=== PATIENT | female | born 1930 | race Caucasian/White ===

== ENCOUNTER 2018-08-29 17:19 | Inpatient (IN) ==
--- NOTE | 2018-08-29 17:51 | Emergency Department Note ---
ED Disposition Clinical Impression: Acute cystitis without hematuria, Acute and chronic cholecystitis Altered mental status Qualifiers: Altered mental status type: stupor Qualified Code(s): R40.1 - Stupor Disposition: Admitted As Inpatient Condition on Discharge: Critical Additional Instructions: Pt being admitted for IVF's, IV antibiotics and supportive care as she is a DNR and she currently has a UTI and Hypotension. She also has a biliary drain in place and it seems to be functioning normally Referrals: Emigdio Olivia MD [Primary Care Provider] - Rafael Ibarra MD [Staff Physician] - Time of Disposition: 20:12 - Critical Care Critical Care Time: Yes Attestation: On , the high probability of a clinically significant, sudden or life threatening deterioration of the following system(s) required my full and direct attention, intervention and personal management. The time I documented below is in addition to time spent performing reported procedures but includes the following listed in this critical care notation. Total Critical Care Time: 45 Vital system(s) involved:: Circulatory Failure, Central Nervous System, Metabolic Failure, Renal Failure My critical care processes included: Assessment & monitoring of V/S, Initial and Re-exams, Data Review/Interpretation, Coordinating Care, Medication Orders and management, Documentation Medical Decision Making - Medical Records Medical records reviewed: Yes: I reviewed the patient's medical records. - Denzel Inquiry Pt receiving controlled substance: No Denzel was queried for this patient: No Vital Signs: 08/29/18 17:20 08/29/18 17:29 08/29/18 17:41 Temperature 98.5 F Temperature Source Axillary Pulse Rate [Right Brachial] 70 50 L 45 L Respiratory Rate 14 Blood Pressure [Right Arm] 85/47 L 92/40 L 90/56 L Blood Pressure Mean [Right Arm] 59 57 67 Blood Pressure Source [Right Arm] Automatic Cuff Automatic Cuff Blood Pressure Position [Right Arm] Supine Supine 02 Sat by Pulse Oximetry 95 Oxygen Delivery Method Nasal Cannula Oxygen Flow Rate (LPM) 4 08/29/18 17:55 08/29/18 18:03 08/29/18 18:20 Temperature Temperature Source Pulse Rate [Right Brachial] 54 L 55 L 86 Respiratory Rate Blood Pressure [Right Arm] 76/33 L 77/34 L 76/33 L Blood Pressure Mean [Right Arm] 47 48 47 Blood Pressure Source [Right Arm] Manual Cuff/ Palpation Automatic Cuff Automatic Cuff Blood Pressure Position [Right Arm] Sitting Supine 02 Sat by Pulse Oximetry Oxygen Delivery Method Oxygen Flow Rate (LPM) 08/29/18 18:56 08/29/18 19:12 08/29/18 19:29 Temperature Temperature Source Pulse Rate [Right Brachial] 60 54 L 58 L Respiratory Rate Blood Pressure [Right Arm] 79/41 L 68/35 L 102/35 L Blood Pressure Mean [Right Arm] 53 46 57 Blood Pressure Source [Right Arm] Automatic Cuff Automatic Cuff Automatic Cuff Blood Pressure Position [Right Arm] Sitting Sitting Sitting 02 Sat by Pulse Oximetry Oxygen Delivery Method Oxygen Flow Rate (LPM) 08/29/18 19:53 08/29/18 20:01 Temperature Temperature Source Pulse Rate [Right Brachial] 76 63 Respiratory Rate Blood Pressure [Right Arm] 91/44 L 83/57 L Blood Pressure Mean [Right Arm] 59 65 Blood Pressure Source [Right Arm] Automatic Cuff Automatic Cuff Blood Pressure Position [Right Arm] Sitting Sitting 02 Sat by Pulse Oximetry 99 Oxygen Delivery Method Nasal Cannula Oxygen Flow Rate (LPM) 4 - Lab Data Lab results reviewed: Yes: I reviewed the patient's lab results. Lab Results 08/29/18 17:30: PT 15.4 H, INR 1.51 H 08/29/18 17:50: WBC 14.0 H, RBC 3.14 L, Hgb 8.8 L, Hct 28.0 L, MCV 89.1, MCH 28 .1, MCHC 31.5 L, RDW 16.2, Plt Count 356, MPV 7.7, Neut % (Auto) 78.0, Lymph % (Auto) 15.7, [place] % (Auto) 6.1, Eos % (Auto) 0.0 L, Baso % (Auto) 0.1, Neut # (Auto) 10.9 H, Lymph # (Auto) 2.2, [place] # (Auto) 0.9, Eos # (Auto) 0.0, Baso # (Auto) 0.0 08/29/18 17:50: Urine Color Yellow, Urine Appearance Sl cloudy, Urine pH 6.5, Ur Specific [place] 1.020, Urine Protein Trace, Urine Glucose (UA) 1+, Urine Ketones Trace, Urine Blood Negative, Urine Nitrate Negative, Urine Bilirubin Negative, Urine Urobilinogen 0.2, Ur Leukocyte Esterase 1+ A, Urine RBC None, Urine WBC 20-50 A, Ur Squamous Epith Cells Occasional, Urine Bacteria 1+, Urine Yeast 2+ 08/29/18 17:50: Sodium 152 H*, Potassium 3.0 L, Chloride 110 H, Carbon Dioxide 27, Anion Gap 18.0 H, BUN 35 H, Creatinine 2.44 H, Estimated Creat Clear 12, Estimated GFR 19 L*, Est GFR ( Amer) 23 L, Glucose 118 H, Calcium 9.3, Total Bilirubin 0.3, AST 54 H, ALT 31, Alkaline Phosphatase 119 H, Total Protein 6.5, Albumin 2.6 L, Globulin 3.9 H, Albumin/Globulin Ratio 0.7 L 08/29/18 17:50: Lactate 5.9 H 08/29/18 17:55: Stl Aeromonas (PCR) Not detected, Stl C. cayetanensis PCR Not detected, Stool Rotavirus (PCR) Not detected, Stl Adenov F 40/41 PCR Not detected, Stool Astrovirus (PCR) Not detected, Stool Campylobacter PCR Not detected, Stl C.difficile Tox PCR Detected A, Stool Cryptosporidium PCR Not detected, Stl E.coli Shiga Tox PCR Not detected, Stool E coli O157 PCR Not detected, Stl Enterotoxigenic E PCR Not detected, Stool EPEC (PCR) Not detected, Stool EAEC (PCR) Not detected, Stl E. histolytica PCR Not detected, Stool Giardia Lamblia PCR Not detected, Stool Salmonella PCR Not detected, Stool Sapovirus (PCR) Not detected, Stl P. shigelloides PCR Not detected, Stl Shigella/EIEC PCR Not detected, St Y.enterocolitica PCR Not detected, Stool Vibrio (PCR) Not detected, Stl Vibrio cholerae PCR Not detected, Stl Norovirus GI/GII PCR Not detected 08/29/18 18:21: ABG pH 7.39, ABG pCO2 42.8, ABG pO2 87.4, ABG HCO3 25.4, ABG Total CO2 26.7, ABG O2 Saturation 95, ABG Base Excess 0.4 Result diagrams: 08/29/18 17:50 08/29/18 17:50 Orders (Tests/Meds): ED MEDICATIONS Generic Name Dose Route Start Last Admin Trade Name Freq PRN Reason Stop Dose Admin Norepinephrine Bitartrate 8 mg 258 mls @ 15.48 mls/hr 08/29/18 19:45 08/29/18 19:33 / Dextrose IV 09/28/18 19:44 8 mcg/min .[id number] ABBIE 15.48 mls/hr Administration Protocol 8 MCG/MIN Vancomycin HCl 1,000 mg/ 250 mls @ 125 mls/hr 08/29/18 20:01 Sodium Chloride IV 08/29/18 22:00 ONCE ONE Discontinued Medications Generic Name Dose Route Start Last Admin Trade Name [place]aria PRN Reason Stop Dose Admin Sodium Chloride 1,000 mls @ 999 mls/hr 08/29/18 18:00 08/29/18 18:00 Sod Chlor 0.9% 1000ml Bag IV 08/29/18 19:00 999 mls/hr .Q1H1M ABBIE Administration Sodium Chloride 1,000 mls @ 999 mls/hr 08/29/18 18:00 08/29/18 18:59 Sod Chlor 0.9% 1000ml Bag IV 08/29/18 19:00 999 mls/hr .Q1H1M ABBIE Administration Piperacillin Sod/Tazobactam 100 mls @ 200 mls/hr 08/29/18 20:01 Sod 3.375 gm/ Sodium Chloride IV 08/29/18 20:02 ONCE ONE Protocol ORDERS Category Date Time Status Blood Culture Stat Micro 08/29/18 17:50 Received Urine Culture(cathed specimen) Stat Micro 08/29/18 17:50 Received ABG [Arterial Blood Gas] Stat RT 08/29/18 17:54 Ordered EKG Request [ECG Request by Dr/Nse] Stat Y 08/29/18 17:56 Ordered - CT Data CT Scan: Head Time Received: 20:[address] Reviewed: Yes: I have reviewed the patient's CT results, I discussed the CT results w/the radiologist, I have viewed the radiologist's interpretation Preliminary Findings: Normal/NAD - Tissue Perfus/Sepsis Re-Eval Reperfusion Exam Performed: Yes Date Performed: 08/29/18 Time Performed: 19:00 Sepsis Follow-Up: Yes: Respiratory exam, Cardiovascular exam, Capillary refill, Skin exam, Vital Signs General Adult HPI - General Stated complaint: mental status change Time Seen by Provider: 08/29/18 17:40 Mode of Arrival: EMS Source of Information: EMS, Medical Record Limitations: Altered Mental Status - History of Present Illness HPI narrative: Pt transfered to [facility] from on Thursday and arrive with a Biliary drainge tube and history of Acute on Chronic cholecystitis. This morning pt much less responsive and hypotensive and brought to the ED this afternoon in an obtunded state and not able to give any history of anyking. Her BP is 84 systolic and she is not verbally responsive and appears to be critically ill...she can not give any history of anykind and very little was sent with her from the [place] Onset (ago): hour(s) Severity: severe Consistency: constant - Related Data Home Medications Medication Instructions Recorded Confirmed Acetaminophen [Acetaminophen Extra 500 mg PO Q6HP PRN 08/29/18 08/29/18 Strength] Apixaban [Eliquis] 2.5 mg PO BID 08/29/18 08/29/18 Ascorbate Calcium [Vitamin C] 500 mg PO BID 08/29/18 08/29/18 Aspirin [Aspirin 81mg EC Tab] 81 mg PO DAILY 08/29/18 08/29/18 Atorvastatin Calcium [Atorvastatin 20 mg PO HS 08/29/18 08/29/18 20mg Tab] Furosemide [Lasix 20mg tab] 20 mg PO DAILY 08/29/18 08/29/18 Insulin Lispro [Humalog] 6 unit SQ ACHS 08/29/18 08/29/18 Insulin Lispro [Humalog] 10 unit SQ ONCE 08/29/18 08/29/18 Ipratropium/Albuterol Sulfate 3 ml IH ONCE 08/29/18 08/29/18 [Duoneb 3mL neb] Lisinopril [Lisinopril 5mg Tablet] 5 mg PO DAILY 08/29/18 08/29/18 Melatonin/Pyridoxine HCl (B6) 3 each PO HS 08/29/18 08/29/18 [Melatonin 3 mg Tablet] Metformin HCl 500 mg PO BID 08/29/18 08/29/18 Metoprolol Succinate [Metoprolol 200 mg PO DAILY 08/29/18 08/29/18 Succinate 200mg Tablet] Quetiapine Fumarate 25 mg PO Q8HP PRN 08/29/18 08/29/18 Quetiapine Fumarate [Seroquel 25mg 75 mg PO HS 08/29/18 08/29/18 tablet] Sertraline HCl [Zoloft 50mg tablet] 50 mg PO DAILY 08/29/18 08/29/18 Tamsulosin HCl [Flomax 0.4mg 0.4 mg PO HS 08/29/18 08/29/18 capsule] Thiamine HCl 100 mg PO DAILY 08/29/18 08/29/18 Zinc Gluconate-Zinc Picolinate 30 mg PO HS 08/29/18 08/29/18 [Zinc] dilTIAZem HCl [Diltiazem 240mg 240 mg PO DAILY 08/29/18 08/29/18 24Hr ER Cap] levoFLOXacin [Levaquin 500mg 500 mg PO DAILY 08/29/18 08/29/18 tab] Allergies Allergy/AdvReac Type Severity Reaction Status Date / Time codeine Allergy Verified 08/29/18 17:41 oxycodone Allergy Verified 08/29/18 17:41 [facility] History I have reviewed the patient's past medical history: Yes ROS Obtained: Yes All systems reviewed & no additional complaints - Constitutional Constitutional: Reports system reviewed and no additional complaints, except as docu, Reports as per HPI - Cardiovascular Cardiovascular: Reports system reviewed and no additional complaints, except as docu, Reports as per HPI - Respiratory Respiratory: Yes system reviewed and no additional complaints, except as docu, Yes as per HPI - Gastrointestinal Gastrointestingal: Reports: system reviewed and no additional complaints, except as docu, as per HPI (has a drainage tube in her biliary tree) - Neurologic Neurologic: Reports system reviewed and no additional complaints, except as docu, Reports as per HPI (pt is obtunded at this time) Physical Exam - General General appearance: obtunded - Head Head exam: atraumatic - Eye Eye exam: Present: normal appearance - ENT ENT exam: Present: mucous membranes dry - Neck Neck exam: Present: normal inspection - Chest Chest inspection: Present: normal inspection - Respiratory Respiratory exam: Present: normal lung sounds bilaterally - Cardiovascular Cardiovascular exam: Present: regular rate (has a drainage tube in RUQ draining bile) - Abdominal Exam Abdominal exam: Present: soft (has aq biliary drain in) - Neurological Exam Neurological exam: Present: other (pt is obtunded and not able to answer any questions at all)
[2018-08-29 18:06] LABS: Basophils % 0.1 % (0.1-2.0); Hemoglobin 8.8 g/dL (12.2-16.2); Lymphocytes # 2.2 K/mm3 (0.7-4.5); Lymphocytes % 15.7 K/mm3 (10-50); Mean Corpuscular HGB Conc 31.5 g/dL (31.8-35.4); Mean Corpuscular Hemoglobin 28.1 pg (27.0-31.2); Mean Corpuscular Volume 89.1 fl (81-99); Mean Platelet Volume 7.7 fl (7.4-10.4); Monocytes # 0.9 K/mm3 (0.1-1.0); Monocytes % 6.1 % (1.7-9.3); Neutrophils # 10.9 K/mm3 (1.8-7.8); Platelet Count 356 K/mm3 (142-424); Red Blood Count 3.14 M/mm3 (4.20-5.40); Red Cell Distribution Width 16.2 % (11.5-17.5)
[2018-08-29 18:20] LABS: Albumin Level 2.6 gm/dL (3.4-5.0); Albumin/Globulin Ratio 0.7 (1.1-1.8); Bilirubin,Total 0.3 mg/dL (0.2-1.0); Calcium 9.3 mg/dL (8.5-10.1); Globulin 3.9 gm/dl (1.3-3.2); Total Protein,Serum 6.5 gm/dL (6.4-8.2)
[2018-08-29 18:23] LABS: ABG Base Excess 0.4 mmol/L (-2.4-2.3); ABG HCO3 25.4 mmhg (22.0-26.0); ABG Oxygen Saturation 95 % (90-100); ABG PCO2 42.8 mmhg (35.0-45.0); ABG PH 7.39 mmol/L (7.35-7.45); ABG PO2 87.4 mmhg (80-100); ABG TCO2 26.7 mmhg (23-27)
[2018-08-29 18:45] LABS: INR 1.51 (0.9-1.1); Prothrombin Time 15.4 seconds (9.4-11.8)
[2018-08-29 20:55] LABS: Amphetamine/Metha Screen,Urine Negative ng/mL (<1000); Barbiturates Screen,Urine Negative ng/mL (<200); Benzodiazepines Screen,Urine Negative ng/mL (<200); Cannabinoid Screen,Urine Negative ng/mL (<50); Cocaine Screen,Urine Negative ng/mL (<300); Methadone Screen,Urine Negative ng/mL (<300); Opiate Screen,Urine Positive ng/mL (<300); Phencyclidine Screen,Urine Negative ng/mL (<25)
--- NOTE | 2018-08-30 07:30 | Death Note ---
Pronouncement Note - Date and Time of Date of : 08/30/18 Time of : 06:12 - PCOD Preliminary cause of : Urinary tract infection - Additional Data Confirmation of : no pulse, no respirations, no heart sounds, pupils fixed and dilated, other (no response to pain) Family: not available Attending/PCP notified?: Yes Attending physician: Rafael Ibarra MD Was code activated?: No Autopsy requested?: No certified driver examiner notified?: No Organ bank notified?: No
--- NOTE | 2018-08-30 08:44 | H&P/Discharge Summary ---
General - General Admission date:: 08/29/18 Discharge date: 08/30/18 *Admission Date: 08/29/18 *Chief complaint: Hypoxia/fever/hyperglycemia *History of present illness: 88-year-old white female, patient of Dr. Olivia at a local [facility], who was admitted from [facility] after having a significant problem with cholecystitis and cholelithiasis with some type of surgical procedure that required indwelling agonal drain. She was transferred to [facility] for rehabilitation and ongoing care. She initially did well, but the morning of admission to [facility] became obtunded, hyperglycemic and hypotensive. She also had problems with respiratory distress. Measures at the [facility] including nebulizer treatments and insulin therapy did not improve her situation and she was transferred to the emergency department. Her family indicated to the [facility] staff as well as to emergency department staff that they wished no aggressive measures for resuscitation given her advanced age, recent significant comorbidities and her poor prognosis for recovery. In the ER she was found to be afflicted with severe sepsis. She had evidence of multiorgan failure with lactic acidosis, elevated creatinine, low oxygen levels and hypotension. She was admitted to stepdown unit on levo fed infusions and fluids. [facility] History I have reviewed the patient's past medical history: Yes Medical History: Reports:: Atrial Fibrillation Denies:: Cancer, Diabetes Mellitus Type 2, Internal Pacemaker, MRSA Other Surgeries: No: Pacemaker - *Social History Alcohol Intake: never Occupational Status: retired, other - Psychiatric History Expresses thoughts of harming self/others: None Suicide Plan Description: No Plan *Family Hx:: Unable to obtain Review of Systems - Review of Systems Review of systems:: unable to obtain Exam Vital signs and Labs for Last 24 Hours: Temp Pulse Resp BP Pulse Ox 98.7 F 30 L 12 70/22 L 94 L 08/29/18 21:45 08/30/18 04:00 08/29/18 22:30 08/29/18 22:30 08/29/18 22:30 Laboratory Results - last 24 hr 08/29/18 17:30: PT 15.4 H, INR 1.51 H 08/29/18 17:50: WBC 14.0 H, RBC 3.14 L, Hgb 8.8 L, Hct 28.0 L, MCV 89.1, MCH 28.1, MCHC 31.5 L, RDW 16.2, Plt Count 356, MPV 7.7, Neut % (Auto) 78.0, Lymph % (Auto) 15.7, Platte % (Auto) 6.1, Eos % (Auto) 0.0 L, Baso % (Auto) 0.1, Neut # (Auto) 10.9 H, Lymph # (Auto) 2.2, Platte # (Auto) 0.9, Eos # (Auto) 0.0, Baso # (Auto) 0.0 08/29/18 17:50: Urine Color Yellow, Urine Appearance Sl cloudy, Urine pH 6.5, Ur Specific [place] 1.020, Urine Protein Trace, Urine Glucose (UA) 1+, Urine Ketones Trace, Urine Blood Negative, Urine Nitrate Negative, Urine Bilirubin Negative, Urine Urobilinogen 0.2, Ur Leukocyte Esterase 1+ A, Urine RBC None, Urine WBC 20-50 A, Ur Squamous Epith Cells Occasional, Urine Bacteria 1+, Urine Yeast 2+ 08/29/18 17:50: Sodium 152 H*, Potassium 3.0 L, Chloride 110 H, Carbon Dioxide 27, Anion Gap 18.0 H, BUN 35 H, Creatinine 2.44 H, Estimated Creat Clear 12, Estimated GFR 19 L*, Est GFR ( Amer) 23 L, Glucose 118 H, Calcium 9.3, Total Bilirubin 0.3, AST 54 H, ALT 31, Alkaline Phosphatase 119 H, Total Protein 6.5, Albumin 2.6 L, Globulin 3.9 H, Albumin/Globulin Ratio 0.7 L 08/29/18 17:50: Lactate 5.9 H 08/29/18 17:50: Urine Opiates Screen Positive H, Urine Methadone Screen Negative, Ur Barbituates Screen Negative, Ur Phencyclidine Scrn Negative, Ur Amphetamines Screen Negative, U Benzodiazepines Scrn Negative, Urine Cocaine Screen Negative, U Marijuana (THC) Screen Negative 08/29/18 17:55: Stl Aeromonas (PCR) Not detected, Stl C. cayetanensis PCR Not detected, Stool Rotavirus (PCR) Not detected, Stl Adenov F 40/41 PCR Not detected, Stool Astrovirus (PCR) Not detected, Stool Campylobacter PCR Not detected, Stl C.difficile Tox PCR Detected A, Stool Cryptosporidium PCR Not detected, Stl E.coli Shiga Tox PCR Not detected, Stool E coli O157 PCR Not detected, Stl Enterotoxigenic E PCR Not detected, Stool EPEC (PCR) Not detected, Stool EAEC (PCR) Not detected, Stl E. histolytica PCR Not detected, Stool Giardia Lamblia PCR Not detected, Stool Salmonella PCR Not detected, Stool Sapovirus (PCR) Not detected, Stl P. shigelloides PCR Not detected, Stl Shigella/EIEC PCR Not detected, St Y.enterocolitica PCR Not detected, Stool Vibrio (PCR) Not detected, Stl Vibrio cholerae PCR Not detected, Stl Norovirus GI/GII PCR Not detected 08/29/18 18:21: ABG pH 7.39, ABG pCO2 42.8, ABG pO2 87.4, ABG HCO3 25.4, ABG Total CO2 26.7, ABG O2 Saturation 95, ABG Base Excess 0.4 08/29/18 22:05: Ammonia 7 L 08/29/18 22:05: Lactate 6.2 H 08/29/18 22:05: POC Glucose 208 H I & O for Last 24 hours: Intake & Output 08/27/18 08/28/18 08/29/18 08/30/18 11:59 11:59 11:59 11:59 Intake Total 3193 / 3193 Output Total 430 / 430 Balance 2763 / 2763 Weight 116 lb 2 oz Narrative: Patient obtunded. Neuro exam significantly compromised. Oropharynx dry. Poor tissue perfusion. Blood pressure low as noted. Vital signs reviewed, hypotension and bradycardia noted. Patient unresponsive to tactile or verbal stimuli. Heart rate bradycardic. Abdominal exam compromised by her obtundation. Perfusion status poor. Hospital Course Hospital Course: Patient was admitted to stepdown. Given her low blood pressure in the face of Levophed infusions and her family's [id number] avoid futile and painful/invasive medical procedures this was discontinued. Antibiotics were also discontinued given the palliative nature of her treatment and her overall poor prognosis. As a result the patient from her severe sepsis on August 30 at 6:12 AM. In accordance with her family's wishes and her previously noted documentation at the [facility] aggressive resuscitative measures were not undertaken. Results Labs on day of discharge: Labs from last 24 hours 10/28/18 10/28/18 10/28/18 22:05 22:05 22:05 WBC RBC Hgb Hct MCV MCH MCHC RDW Plt Count MPV Neut % (Auto) Lymph % (Auto) [place]atte % (Auto) Eos % (Auto) Baso % (Auto) Neut # (Auto) Lymph # (Auto) Platte # (Auto) Eos # (Auto) Baso # (Auto) PT INR ABG pH ABG pCO2 ABG pO2 ABG HCO3 ABG Total CO2 ABG O2 Saturation ABG Base Excess Sodium Potassium Chloride Carbon Dioxide Anion Gap BUN Creatinine Estimated Creat Clear Estimated GFR Est GFR ( Amer) Glucose POC Glucose 208 H Lactate 6.2 H Calcium Total Bilirubin AST ALT Alkaline Phosphatase Ammonia 7 L Total Protein Albumin Globulin Albumin/Globulin Ratio Urine Color Urine Appearance Urine pH Ur Specific [place] Urine Protein Urine Glucose (UA) Urine Ketones Urine Blood Urine Nitrate Urine Bilirubin Urine Urobilinogen Ur Leukocyte Esterase Urine RBC Urine WBC Ur Squamous Epith Cells Urine Bacteria Urine Yeast Stl Aeromonas (PCR) Stl C. cayetanensis PCR Stool Rotavirus (PCR) Stl Adenov F 40/41 PCR Stool Astrovirus (PCR) Stool Campylobacter PCR Stl C.difficile Tox PCR Stool Cryptosporidium PCR Stl E.coli Shiga Tox PCR Stool E coli O157 PCR Stl Enterotoxigenic E PCR Stool EPEC (PCR) Stool EAEC (PCR) Stl E. histolytica PCR Stool Giardia Lamblia PCR Stool Salmonella PCR Stool Sapovirus (PCR) Stl P. shigelloides PCR Stl Shigella/EIEC PCR St Y.enterocolitica PCR Stool Vibrio (PCR) Stl Vibrio cholerae PCR Stl Norovirus GI/GII PCR Urine Opiates Screen Urine Methadone Screen Ur Barbituates Screen Ur Phencyclidine Scrn Ur Amphetamines Screen U Benzodiazepines Scrn Urine Cocaine Screen U Marijuana (THC) Screen 08/29/18 08/29/18 08/29/18 18:21 17:55 17:50 WBC RBC Hgb Hct MCV MCH MCHC RDW Plt Count MPV Neut % (Auto) Lymph % (Auto) [place]atte % (Auto) Eos % (Auto) Baso % (Auto) Neut # (Auto) Lymph # (Auto) [place]atte # (Auto) Eos # (Auto) Baso # (Auto) PT INR ABG pH 7.39 ABG pCO2 42.8 ABG pO2 87.4 ABG HCO3 25.4 ABG Total CO2 26.7 ABG O2 Saturation 95 ABG Base Excess 0.4 Sodium Potassium Chloride Carbon Dioxide Anion Gap BUN Creatinine Estimated Creat Clear Estimated GFR Est GFR ( Amer) Glucose POC Glucose Lactate Calcium Total Bilirubin AST ALT Alkaline Phosphatase Ammonia Total Protein Albumin Globulin Albumin/Globulin Ratio Urine Color Urine Appearance Urine pH Ur Specific [place] Urine Protein Urine Glucose (UA) Urine Ketones Urine Blood Urine Nitrate Urine Bilirubin Urine Urobilinogen Ur Leukocyte Esterase Urine RBC Urine WBC Ur Squamous Epith Cells Urine Bacteria Urine Yeast Stl Aeromonas (PCR) Not detected Stl C. cayetanensis PCR Not detected Stool Rotavirus (PCR) Not detected Stl Adenov F 40/41 PCR Not detected Stool Astrovirus (PCR) Not detected Stool Campylobacter PCR Not detected Stl C.difficile Tox PCR Detected A Stool Cryptosporidium PCR Not detected Stl E.coli Shiga Tox PCR Not detected Stool E coli O157 PCR Not detected Stl Enterotoxigenic E PCR Not detected Stool EPEC (PCR) Not detected Stool EAEC (PCR) Not detected Stl E. histolytica PCR Not detected Stool Giardia Lamblia PCR Not detected Stool Salmonella PCR Not detected Stool Sapovirus (PCR) Not detected Stl P. shigelloides PCR Not detected Stl Shigella/EIEC PCR Not detected St Y.enterocolitica PCR Not detected Stool Vibrio (PCR) Not detected Stl Vibrio cholerae PCR Not detected Stl Norovirus GI/GII PCR Not detected Urine Opiates Screen Positive H Urine Methadone Screen Negative Ur Barbituates Screen Negative Ur Phencyclidine Scrn Negative Ur Amphetamines Screen Negative U Benzodiazepines Scrn Negative Urine Cocaine Screen Negative U Marijuana (THC) Screen Negative 08/29/18 08/29/18 08/29/18 17:50 17:50 17:50 WBC RBC Hgb Hct MCV MCH MCHC RDW Plt Count MPV Neut % (Auto) Lymph % (Auto) [place] % (Auto) Eos % (Auto) Baso % (Auto) Neut # (Auto) Lymph # (Auto) [place] # (Auto) Eos # (Auto) Baso # (Auto) PT INR ABG pH ABG pCO2 ABG pO2 ABG HCO3 ABG Total CO2 ABG O2 Saturation ABG Base Excess Sodium 152 H* Potassium 3.0 L Chloride 110 H Carbon Dioxide 27 Anion Gap 18.0 H BUN 35 H Creatinine 2.44 H Estimated Creat Clear 12 Estimated GFR 19 L* Est GFR ( Amer) 23 L Glucose 118 H POC Glucose Lactate 5.9 H Calcium 9.3 Total Bilirubin 0.3 AST 54 H ALT 31 Alkaline Phosphatase 119 H Ammonia Total Protein 6.5 Albumin 2.6 L Globulin 3.9 H Albumin/Globulin Ratio 0.7 L Urine Color Yellow Urine Appearance Sl cloudy Urine pH 6.5 Ur Specific [place] 1.020 Urine Protein Trace Urine Glucose (UA) 1+ Urine Ketones Trace Urine Blood Negative Urine Nitrate Negative Urine Bilirubin Negative Urine Urobilinogen 0.2 Ur Leukocyte Esterase 1+ A Urine RBC None Urine WBC 20-50 A Ur Squamous Epith Cells Occasional Urine Bacteria 1+ Urine Yeast 2+ Stl Aeromonas (PCR) Stl C. cayetanensis PCR Stool Rotavirus (PCR) Stl Adenov F 40/ PCR Stool Astrovirus (PCR) Stool Campylobacter PCR Stl C.difficile Tox PCR Stool Cryptosporidium PCR Stl E.coli Shiga Tox PCR Stool E coli O157 PCR Stl Enterotoxigenic E PCR Stool EPEC (PCR) Stool EAEC (PCR) Stl E. histolytica PCR Stool Giardia Lamblia PCR Stool Salmonella PCR Stool Sapovirus (PCR) Stl P. shigelloides PCR Stl Shigella/EIEC PCR St Y.enterocolitica PCR Stool Vibrio (PCR) Stl Vibrio cholerae PCR Stl Norovirus GI/GII PCR Urine Opiates Screen Urine Methadone Screen Ur Barbituates Screen Ur Phencyclidine Scrn Ur Amphetamines Screen U Benzodiazepines Scrn Urine Cocaine Screen U Marijuana (THC) Screen 08/29/18 08/29/18 17:50 17:30 WBC 14.0 H RBC 3.14 L Hgb 8.8 L Hct 28.0 L MCV 89.1 MCH 28.1 MCHC 31.5 L RDW 16.2 Plt Count 356 MPV 7.7 Neut % (Auto) 78.0 Lymph % (Auto) 15.7 [place] % (Auto) 6.1 Eos % (Auto) 0.0 L Baso % (Auto) 0.1 Neut # (Auto) 10.9 H Lymph # (Auto) 2.2 Platte # (Auto) 0.9 Eos # (Auto) 0.0 Baso # (Auto) 0.0 PT 15.4 H INR 1.51 H ABG pH ABG pCO2 ABG pO2 ABG HCO3 ABG Total CO2 ABG O2 Saturation ABG Base Excess Sodium Potassium Chloride Carbon Dioxide Anion Gap BUN Creatinine Estimated Creat Clear Estimated GFR Est GFR ( Amer) Glucose POC Glucose Lactate Calcium Total Bilirubin AST ALT Alkaline Phosphatase Ammonia Total Protein Albumin Globulin Albumin/Globulin Ratio Urine Color Urine Appearance Urine pH Ur Specific [place] Urine Protein Urine Glucose (UA) Urine Ketones Urine Blood Urine Nitrate Urine Bilirubin Urine Urobilinogen Ur Leukocyte Esterase Urine RBC Urine WBC Ur Squamous Epith Cells Urine Bacteria Urine Yeast Stl Aeromonas (PCR) Stl C. cayetanensis PCR Stool Rotavirus (PCR) Stl Adenov F 40/41 PCR Stool Astrovirus (PCR) Stool Campylobacter PCR Stl C.difficile Tox PCR Stool Cryptosporidium PCR Stl E.coli Shiga Tox PCR Stool E coli O157 PCR Stl Enterotoxigenic E PCR Stool EPEC (PCR) Stool EAEC (PCR) Stl E. histolytica PCR Stool Giardia Lamblia PCR Stool Salmonella PCR Stool Sapovirus (PCR) Stl P. shigelloides PCR Stl Shigella/EIEC PCR St Y.enterocolitica PCR Stool Vibrio (PCR) Stl Vibrio cholerae PCR Stl Norovirus GI/GII PCR Urine Opiates Screen Urine Methadone Screen Ur Barbituates Screen Ur Phencyclidine Scrn Ur Amphetamines Screen U Benzodiazepines Scrn Urine Cocaine Screen U Marijuana (THC) Screen DS: Diagnosis - Discharge Diagnosis (1) Severe sepsis Status: Acute Discharge Medications - Medications for Discharge Home Medication List at Discharge: No Action Apixaban [Eliquis] 2.5 mg PO BID Ascorbate Calcium [Vitamin C] 500 mg PO BID Atorvastatin Calcium [Atorvastatin 20mg Tab] 20 mg PO HS dilTIAZem HCl [Diltiazem 240mg 24Hr ER Cap] 240 mg PO DAILY Furosemide [Lasix 20mg tab] 20 mg PO DAILY Insulin Lispro [Humalog] 6 unit SQ ACHS Insulin Lispro [Humalog] 10 unit SQ ONCE Ipratropium/Albuterol Sulfate [Duoneb 3mL neb] 3 ml IH ONCE levoFLOXacin [Levaquin 500mg tab] 500 mg PO DAILY Lisinopril [Lisinopril 5mg Tablet] 5 mg PO DAILY Metformin HCl 500 mg PO BID Metoprolol Succinate [Metoprolol Succinate 200mg Tablet] 200 mg PO DAILY Quetiapine Fumarate 25 mg PO Q8HP PRN PRN Reason: mood Quetiapine Fumarate [Seroquel 25mg tablet] 75 mg PO HS Sertraline HCl [Zoloft 50mg tablet] 50 mg PO DAILY Tamsulosin HCl [Flomax 0.4mg capsule] 0.4 mg PO HS Thiamine HCl 100 mg PO DAILY Zinc Gluconate-Zinc Picolinate [Zinc] 30 mg PO HS Acetaminophen [Acetaminophen Extra Strength] 500 mg PO Q6HP PRN PRN Reason: pain/fever Aspirin [Aspirin 81mg EC Tab] 81 mg PO DAILY Melatonin/Pyridoxine HCl (B6) [Melatonin 3 mg Tablet] 3 each PO HS Disposition Disposition:
== END 2018-08-30 06:12 | disposition expired ==
LOC: 2ND 17:19 → ER 17:19 → OBSVTOIN 21:19 → 2ND 21:20
PROVIDERS: ADMIT Internal Medicine Adolescent Medicine; ATTEND Internal Medicine Adolescent Medicine